=== PATIENT | female | born 1975 | race American Indian/Alaskan Native ===

== ENCOUNTER 2017-08-26 13:53 | Outpatient (CLI) | payer OTHER ==
--- NOTE | 2017-08-27 09:18 | Mammography Report ---
Bilateral digital screening mammogram with CAD. Comparison study is dated August 23, 2016. Findings: The breast parenchyma is heterogeneously dense. On MLO view of the left breast, there is a parenchymal asymmetry in the upper left breast not definite identified in the CC projection. There is no architectural distortion. No suspicious calcifications are seen. Impression: Left parenchymal asymmetry. BI-RADS code: 0. Recommendation: Spot compression image, 90 degree view, and ultrasound if needed.
== END 2017-08-26 13:54 | disposition home or self-care (01) ==
LOC: MAMMO 13:53
PROVIDERS: ATTEND Internal Medicine
DX: Z12.31 Encounter for screening mammogram for malignant neoplasm of breast (principal)
CPT/HCPCS: 77067; G0202

== ENCOUNTER 2017-09-09 08:01 | Outpatient (CLI) | payer OTHER ==
--- NOTE | 2017-09-09 09:26 | Mammography Report ---
Left mammogram and left breast ultrasound: Based on recent screening exam of 26 August additional CC and lateral compression imaging of the breast confirms the presence of a focal 11 mm relatively round asymmetry just above the level of the posterior breast. It appears circumscribed in the lateral view but somewhat less well-defined in the CC projection. Ultrasound of the left breast identifies an elongated homogeneously hypoechoic and circumscribed nodule in the 3:00 position approximately 5 cm from the nipple. It measures 9.4 mm. No other findings are identified by the pet adoption counselor. Impressions: The ultrasound findings may correlate with the mammographic finding. There are no suspicious characteristics in either modality therefore the findings are felt to most likely be benign. Recommendation: Repeat mammogram and left breast ultrasound in 6 months. The pet adoption counselor has been instructed to notify the patient of our findings and recommendation. BI-RADS CATEGORY: 3 = Probably benign ACR BI-RADS MAMMOGRAPHIC CODES: 0 = Needs additional imaging evaluation; 1 = Negative; 2 = Benign; 3 = Probably benign; 4 = Suspicious; 5 = Malignant; 6 = Known biopsy-proven malignancy COMMENT: 1. Dense breast tissue, i.e., adenosis, fibrocystic changes, etc., may obscure an underlying neoplasm. 2. Approximately 10% of cancers are not detected with mammography. 3. A negative mammography report should not delay biopsy if a clinically suspicious mass is present.
== END 2017-09-09 08:02 | disposition home or self-care (01) ==
LOC: MAMMO 08:01
PROVIDERS: ATTEND Internal Medicine
DX: R92.2 Inconclusive mammogram (principal)
CPT/HCPCS: 76642; G0206

== ENCOUNTER 2018-03-13 08:30 | Outpatient (CLI) | payer OTHER ==
--- NOTE | 2018-03-13 09:15 | Mammography Report ---
Left mammogram and left breast ultrasound: This exam is a short term followup to her prior exam of August 2017. A left breast asymmetry evaluated at that time is no longer apparent in the current mammogram is unremarkable. A focal hypodensity in the 3:00 location on prior ultrasound is no longer identified and the current ultrasound in this region between 1:00 and 3:00 is unremarkable. Impression: Interval resolution of left breast asymmetry on both mammography and ultrasound. Recommendation: Resume annual mammography. BI-RADS CATEGORY: 1 = Negative ACR BI-RADS MAMMOGRAPHIC CODES: 0 = Needs additional imaging evaluation; 1 = Negative; 2 = Benign; 3 = Probably benign; 4 = Suspicious; 5 = Malignant; 6 = Known biopsy-proven malignancy COMMENT: 1. Dense breast tissue, i.e., adenosis, fibrocystic changes, etc., may obscure an underlying neoplasm. 2. Approximately 10% of cancers are not detected with mammography. 3. A negative mammography report should not delay biopsy if a clinically suspicious mass is present. No
== END 2018-03-13 08:31 | disposition home or self-care (01) ==
LOC: MAMMO 08:30
PROVIDERS: ATTEND Internal Medicine
DX: N64.89 Other specified disorders of breast (principal); R92.2 Inconclusive mammogram